=== PATIENT | female | born 1940 | race Caucasian/White ===

== ENCOUNTER 2019-06-27 14:17 | Outpatient (RCR) | payer MEDICARE, SELFPAY | END 2019-12-31 23:59 | disposition home or self-care (01) | LOC: OPREHAB 14:17 | PROVIDERS: PCP Internal Medicine; Visit Provider Internal Medicine | DX: R42 Dizziness and giddiness (principal) | CPT/HCPCS: 97161 ==

== ENCOUNTER 2019-10-30 00:40 | Day surgery (SDC) | payer MEDICARE, SELFPAY ==
[2019-10-23 14:47] VITALS: BMI 37.3
[2019-10-30] MEDS: LACTATED RINGERS 1,000 ML 150 ML IV CONT ×2 (06:45→07:40)
[2019-10-30 06:58] VITALS: BP 149/65; PULSE 70; RESP 20; TEMP 36.6; O2SAT 96
--- NOTE | 2019-10-30 07:21 | WPDANESEPPF ---
Anes - Initial Pre Proc Eval Procedure: Operation Date: 10/30/19 07:30 Proposed Procedures p Screening Colonoscopy - Momo Sanz MD Date/Time: 10/30/19 07:21 Surgeon: Momo Sanz MD Pre Op Diagnosis: hx colon polyp Patient Data Age: 78 Gender: F Height: 5 ft 6 in Weight: 108.3 kg Last Vital Signs Temp 97.9 F 10/30/19 06:58 Pulse 70 10/30/19 06:58 Resp 20 10/30/19 06:58 BP 149/65 H 10/30/19 06:58 Pulse Ox 96 10/30/19 06:58 Allergies Allergy/AdvReac Type Severity Reaction Status Date / Time acetaminophen [From Vicodin] Allergy Nausea Verified 10/30/19 07:02 adenosine Allergy Weakness Verified 10/30/19 07:02 bupivacaine [From Marcaine] Allergy Hives Verified 10/30/19 07:02 celecoxib [From Celebrex] Allergy GI ISSUE Verified 10/30/19 07:02 diclofenac [From Arthrotec] Allergy GI ISSUE Verified 10/30/19 07:02 hydrochlorothiazide Allergy RENAL Verified 10/30/19 07:02 FAILURE hydrocodone [From Vicodin] Allergy Nausea Verified 10/30/19 07:02 levofloxacin [From Levaquin] Allergy THROAT Verified 10/30/19 07:02 CLOSING lidocaine Allergy Hives Verified 10/30/19 07:02 metoprolol [From Toprol XL] Allergy Cough Verified 10/30/19 07:02 metronidazole [From Flagyl] Allergy Nausea Verified 10/30/19 07:02 misoprostol [From Arthrotec] Allergy GI ISSUE Verified 10/30/19 07:02 prednisone Allergy Hives Verified 10/30/19 07:02 prochlorperazine Allergy Confusion Verified 10/30/19 07:02 [From Compazine] quinapril [From Accupril] Allergy Cramping Verified 10/30/19 07:02 of the Muscles rofecoxib [From Vioxx] Allergy Gastrointestinal Verified 10/30/19 07:02 Upset sertraline [From Zoloft] Allergy Gastrointestinal Verified 10/30/19 07:02 Upset spironolactone Allergy Diarrhea Verified 10/30/19 07:02 sulfanilamide Allergy Verified 10/30/19 07:02 Home Medications Medication Instructions Recorded Confirmed Type amlodipine 5 mg PO DAILY 10/23/19 10/23/19 History aspirin [Aspirin Low Dose] 81 mg PO DAILY 10/23/19 10/23/19 History atorvastatin 10 mg PO DAILY 10/23/19 10/30/19 History calcium polycarbophil [FiberCon] 625 mg PO DAILY 10/23/19 10/23/19 History coenzyme Q10 [CoQ-10] 30 mg PO DAILY 10/23/19 10/23/19 History colesevelam [WelChol] 625 mg PO DAILY 10/23/19 10/23/19 History escitalopram oxalate 10 mg PO DAILY 10/23/19 10/23/19 History esomeprazole magnesium [Nexium] 40 mg PO DAILY 10/23/19 10/23/19 History furosemide 40 mg PO DAILY 10/23/19 10/23/19 History levothyroxine 100 mcg PO DAILY 10/23/19 10/23/19 History potassium chloride 10 meq PO DAILY 10/23/19 10/23/19 History telmisartan [Micardis] 20 mg PO DAILY 10/23/19 10/30/19 History verapamil 180 mg PO DAILY 10/23/19 10/30/19 History esomeprazole magnesium [Nexium] 40 mg PO DAILY 10/30/19 10/30/19 History lorazepam 0.5 mg PO DAILY 10/30/19 10/30/19 History Patient hx anesthesia problems: none Family hx anesthesia problems: none [facility] Past Medical History Medical History (Updated 10/30/19 @ 07:21 by Prosper Gillis MD) COPD (chronic obstructive pulmonary disease) GERD (gastroesophageal reflux disease) Hypertension Hypothyroid Family History Family History (Updated 03/25/16 @ 23:19 by DOCTOR UNKNOWN) Father Family history of lymphoma Hypertension Mother Hypertension Family history of coronary artery disease Sibling Family history of malignant neoplasm of breast in first degree relative Other Family history of heart disease in male family member before age 55 Family history of malignant neoplasm of male breast Social History Social History Smoking status: Former smoker Smoking end date: 08/28/76 Alcohol intake: never Anes - Eval Final PreProcedure Day of Procedure 10/30/19 07:21 Patient weight: obese Heart: regular rate and rhythm Lungs: clear to auscultation Airway: Mallampati scale class III Neurological: alert and oriented Last oral intake: >/= 8 hours
--- NOTE | 2019-10-30 07:41 | WPDGICN ---
Assessment and Plan Additional Plan This is a 78-year-old white female patient seen in evaluation at the request of Dr Amado Choe. patient has a history of colon polyps. She presents today for follow-up colonoscopy. Her current weight appetite bowel movements are normal. She denies abdominal pain. She denies blood in her stools. Past medical history is significant for COPD, hypertension, elevated cholesterol, hypothyroidism, current medications include amlodipine, FiberCon, Lasix, atorvastatin, levothyroxine, lorazepam Marlene, Micardis, Nexium, potassium, verapamil, Welchol, she has allergies to Arthrotec, Celebrex, Compazine, Flagyl, hydrochlorothiazide, Levaquin, spironolactone, Vicodin, Zoloft, sulfa medicines, Accupril, family history noncontributory. Physical exam reveals her to be alert. Oriented x3. She is anicteric. Lungs are clear to auscultation and percussion. Heart is without murmur or extra sounds. Abdominal exam bowel sounds are present soft nontender with no organomegaly. Digital external rectal exam is normal. Impression 1. Personal history of colon polyps. Plan is for surveillance colonoscopy now and consider at 5 years intervals if she remains healthy. GI Consult Note Consult date/time: 10/30/19 07:41 HPI: Jennie Walker is a 78 year old female [facility] Past Medical History Medical History (Updated 10/30/19 @ 07:21 by Prosper Gillis MD) COPD (chronic obstructive pulmonary disease) GERD (gastroesophageal reflux disease) Hypertension Hypothyroid Family History Family History (Updated 03/25/16 @ 23:19 by DOCTOR UNKNOWN) Father Family history of lymphoma Hypertension Mother Hypertension Family history of coronary artery disease Sibling Family history of malignant neoplasm of breast in first degree relative Other Family history of heart disease in male family member before age 55 Family history of malignant neoplasm of male breast Social History Social History Smoking status: Former smoker Smoking end date: 08/28/76 Alcohol intake: never Meds Home Medications and Allergies Home Medications Medication Instructions Recorded Confirmed Type amlodipine 5 mg PO DAILY 10/23/19 10/23/19 History aspirin [Aspirin Low Dose] 81 mg PO DAILY 10/23/19 10/23/19 History atorvastatin 10 mg PO DAILY 10/23/19 10/30/19 History calcium polycarbophil [FiberCon] 625 mg PO DAILY 10/23/19 10/23/19 History coenzyme Q10 [CoQ-10] 30 mg PO DAILY 10/23/19 10/23/19 History colesevelam [WelChol] 625 mg PO DAILY 10/23/19 10/23/19 History escitalopram oxalate 10 mg PO DAILY 10/23/19 10/23/19 History esomeprazole magnesium [Nexium] 40 mg PO DAILY 10/23/19 10/23/19 History furosemide 40 mg PO DAILY 10/23/19 10/23/19 History levothyroxine 100 mcg PO DAILY 10/23/19 10/23/19 History potassium chloride 10 meq PO DAILY 10/23/19 10/23/19 History telmisartan [Micardis] 20 mg PO DAILY 10/23/19 10/30/19 History verapamil 180 mg PO DAILY 10/23/19 10/30/19 History esomeprazole magnesium [Nexium] 40 mg PO DAILY 10/30/19 10/30/19 History lorazepam 0.5 mg PO DAILY 10/30/19 10/30/19 History Allergies Allergy/AdvReac Type Severity Reaction Status Date / Time acetaminophen [From Vicodin] Allergy Nausea Verified 10/30/19 07:02 adenosine Allergy Weakness Verified 10/30/19 07:02 bupivacaine [From Marcaine] Allergy Hives Verified 10/30/19 07:02 celecoxib [From Celebrex] Allergy GI ISSUE Verified 10/30/19 07:02 diclofenac [From Arthrotec] Allergy GI ISSUE Verified 10/30/19 07:02 hydrochlorothiazide Allergy RENAL Verified 10/30/19 07:02 FAILURE hydrocodone [From Vicodin] Allergy Nausea Verified 10/30/19 07:02 levofloxacin [From Levaquin] Allergy THROAT Verified 10/30/19 07:02 CLOSING lidocaine Allergy Hives Verified 10/30/19 07:02 metoprolol [From Toprol XL] Allergy Cough Verified 10/30/19 07:02 metronidazole [From Flagyl] Allergy Nausea Verified 10/30/19 07:02 misoprostol [From Arthrot
[2019-10-30 07:57] VITALS: BP 125/53; PULSE 63; RESP 17; O2SAT 95
[2019-10-30 08:07] VITALS: BP 122/60; PULSE 65; RESP 16; O2SAT 95
[2019-10-30 08:17] VITALS: BP 134/58; PULSE 71; RESP 19; O2SAT 98
== END 2019-10-30 08:55 | disposition home or self-care (01) ==
PROVIDERS: Visit Provider Internal Medicine Gastroenterology
PROC: 0DJD8ZZ Inspection of Lower Intestinal Tract, Via Natural or Artificial Opening Endoscopic (ICD-10-PCS; CPT 45378; principal; 2019-10-30 07:30)
DX: Z12.11 Encounter for screening for malignant neoplasm of colon (principal); D12.2 Benign neoplasm of ascending colon; K64.8 Other hemorrhoids; I10 Essential (primary) hypertension; E78.00 Pure hypercholesterolemia, unspecified; J44.9 Chronic obstructive pulmonary disease, unspecified; E03.9 Hypothyroidism, unspecified; K21.9 Gastro-esophageal reflux disease without esophagitis; Z87.891 Personal history of nicotine dependence; Z79.82 Long term (current) use of aspirin; E66.9 Obesity, unspecified; Z68.38 Body mass index [BMI] 38.0-38.9, adult
CPT/HCPCS: 45385; 88305; J2704; J7120

== ENCOUNTER → 2022-05-16 12:26 | Outpatient (CLI) | payer MEDICARE, SELFPAY ==
--- NOTE | ~2022-05-16 | CT_ITS ---
EXAMINATION: CT abdomen pelvis w con DATE: 05/16/2022 13:12 INDICATION: Generalized abdominal pain. Status post cholecystectomy, hysterectomy, appendectomy and c olon resection. TECHNIQUE: Computed tomography (CT) of the abdomen and pelvis was performed with 100 CC Omnipaque 350 intravenous contrast. Automated exposure control and iterative reconstruction technique were employe d. Exam dose: 1027.83 mGy-cm total exam DLP. COMPARISON: 08/06/2015 CTA abdomen FINDINGS: Again noted are numerous small groundglass nodular densities in the lower lung zones; many were present on 08/06/2015. These are likely chronic benign post infectious or inflammatory residua. No infiltrate or consolidation at the lung bases. No pericardial or pleural effusion. Stable hepatic lesions including posterior right hepatic hemangioma. Stable small cyst or hemangioma of the medial segment left hepatic lobe. 4 mm posterior right hepatic cyst. Status post cholecystectomy. No bile duct dilatation. Normal splenic size. No pancreatic mass lesion or calcification or ductal dilatation. Normal morphology of the adrenal glands. No renal mass lesion or urinary tract calculus or hydroureteronephrosis. The urinary bladder is relat ively evacuated but otherwise unremarkable. Status post hysterectomy. There is extensive calcification of the abdominal aorta but no aneurysm. Calcification of iliac and f emoral arteries without aneurysm. No intraperitoneal or retroperitoneal or pelvic mass lesion or autumn opathy or ascites is noted. Very small sliding hiatal hernia. No bowel obstruction, bowel wall thickening, pneumatosis or intrape ritoneal free air. Degenerative spurring of the thoracic spine. Multilevel degenerative disc disease of the lumbar spine . Degenerative change at the lumbar apophyseal joints with associated grade 1 anterolisthesis at L3-4 and L4-5. Bilateral hip osteoarthritis, right worse than left. No suspicious osteolytic or osteoblastic lesions are noted. IMPRESSION: Hepatic hemangioma(s) and cyst(s) Status post cholecystectomy Status post hysterectomy Very small sliding hiatal hernia Chronic small groundglass nodular pulmonary opacities Reviewed, dictated and finalized at [facility]. Reviewed, dictated and finalized at location [facility].
[2022-05-17 14:25] LABS: Estimated Glomerular Filt Rate > 60
== END ==
DX: R10.84 Generalized abdominal pain (principal); D18.09 Hemangioma of other sites; K76.89 Other specified diseases of liver; Z90.49 Acquired absence of other specified parts of digestive tract; Z90.710 Acquired absence of both cervix and uterus; K44.9 Diaphragmatic hernia without obstruction or gangrene; R91.8 Other nonspecific abnormal finding of lung field
CPT/HCPCS: 74177; Q9967

== ENCOUNTER → 2022-07-14 16:19 | Outpatient (CLI) | payer MEDICARE, SELFPAY ==
--- NOTE | ~2022-07-14 | XR_ITS ---
EXAMINATION: XR knee LT 2V DATE: 07/14/2022 16:45 INDICATION: Left knee pain TECHNIQUE: Two views of the left knee were obtained. COMPARISON: None. FINDINGS: Alignment is normal. No fracture or osteochondral lesion. There is tricompartmental osteoar thritis of the knee, severe in the medial compartment and moderate in the lateral patellofemoral comp artments. No joint effusion/synovitis. Soft tissues are unremarkable. IMPRESSION: 1. Tricompartmental osteoarthritis, severe in the medial compartment. Reviewed, dictated and finalized at location F. [employer]
== END ==
DX: M25.562 Pain in left knee (principal); M17.12 Unilateral primary osteoarthritis, left knee
CPT/HCPCS: 73560

== ENCOUNTER → 2022-07-25 13:51 | Outpatient (CLI) | payer MEDICARE, SELFPAY ==
--- NOTE | ~2022-07-25 | US_ITS ---
US soft tissue LE LT 07/25/2022 14:15 Indication: Left knee pain Procedure: High-resolution ultrasound of the left knee posteriorly in the area of pain and swelling Comparison: No prior studies for comparison. Findings: There is a complicated cystic structure posterior to the left knee in the area of pain tano uring 4.7 x 1.3 x 1.7 cm, likely a Bakers cyst. No other discrete solid or cystic masses are seen. 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 Reviewed, dictated and finalized at location A. [employer] Impression: 1: Complicated localized fluid posterior to the left knee, likely a Roth's cys t measuring 4.7 x 1.3 x 1.7 cm.
== END ==
DX: M25.562 Pain in left knee (principal); M15.0 Primary generalized (osteo)arthritis; R93.6 Abnormal findings on diagnostic imaging of limbs
CPT/HCPCS: 76882

== ENCOUNTER 2024-06-06 07:32 | Day surgery (SDC) | payer MEDICARE, SELFPAY ==
[2024-05-10 10:48] VITALS: BMI 36.5
[2024-05-22 10:32] VITALS: BMI 36.3
--- NOTE | 2024-06-06 07:08 | WPDANESEPPF ---
Anes - Initial Pre Proc Eval Procedure: Operation Date: 06/06/24 11:30 Proposed Procedures p Diagnostic Colonoscopy - Momo Sanz MD Date/Time: 06/06/24 07:08 Surgeon: Momo Sanz MD Pre Op Diagnosis: Chg.in Bowel Habit.Constipation,unspec.Personal HX Patient Data Age: 83 Gender: F Height: 1.6 m Weight: 93 kg Allergies Allergy/AdvReac Type Severity Reaction Status Date / Time levofloxacin [From Levaquin] Allergy Severe THROAT Verified 06/06/24 10:47 CLOSING bupivacaine [From Marcaine] Allergy Hives Verified 06/06/24 10:47 diclofenac [From Arthrotec] Allergy Unknown Verified 06/06/24 10:47 diltiazem [From Cardizem] Allergy Swelling Verified 06/06/24 10:47 hydrochlorothiazide Allergy RENAL Verified 06/06/24 10:47 FAILURE lidocaine Allergy Hives Verified 06/06/24 10:47 prednisone Allergy Hives Verified 06/06/24 10:47 sulfanilamide Allergy Unknown Verified 06/06/24 10:47 adenosine AdvReac Weakness Verified 06/06/24 10:47 celecoxib [From Celebrex] AdvReac GI ISSUE Verified 06/06/24 10:47 enalaprilat [From Vasotec] AdvReac Cough Verified 06/06/24 10:47 hydrocodone [From Vicodin] AdvReac Nausea Verified 06/06/24 10:47 metoprolol [From Toprol XL] AdvReac Cough Verified 06/06/24 10:47 metronidazole [From Flagyl] AdvReac Nausea Verified 06/06/24 10:47 misoprostol [From Arthrotec] AdvReac GI ISSUE Verified 06/06/24 10:47 prochlorperazine AdvReac Confusion Verified 06/06/24 10:47 [From Compazine] quinapril [From Accupril] AdvReac Cough Verified 06/06/24 10:47 rofecoxib [From Vioxx] AdvReac Gastrointestinal Verified 06/06/24 10:47 Upset sertraline [From Zoloft] AdvReac Hallucinati Verified 06/06/24 10:47 ng spironolactone AdvReac Diarrhea Verified 06/06/24 10:47 Home Medications Medication Instructions Recorded Confirmed Type aspirin 81 mg tablet,delayed 81 mg PO DAILY 10/23/19 06/06/24 History release (Teodora Low Dose Aspirin) atorvastatin 10 mg PO DAILY 10/23/19 06/06/24 History calcium polycarbophil 625 mg 625 mg PO BID 10/23/19 06/06/24 History tablet (FiberCon) coenzyme Q10 30 mg capsule (CoQ-10) 30 mg PO DAILY 10/23/19 06/06/24 History furosemide 40 mg tablet 40 mg PO DAILY 10/23/19 06/06/24 History levothyroxine 100 mcg tablet 100 mcg PO DAILY 10/23/19 06/06/24 History potassium chloride 10 mEq 10 meq PO DAILY 10/23/19 06/06/24 History tablet,extended release telmisartan 20 mg tablet (Micardis) 20 mg PO DAILY 10/23/19 06/06/24 History verapamil 180 mg 24 hr 180 mg PO BID 10/23/19 06/06/24 History capsule,extended release esomeprazole magnesium 40 mg 40 mg PO DAILY 10/30/19 06/06/24 History capsule,delayed release (Nexium) lorazepam 0.5 mg tablet 0.5 mg PO DAILY PRN Anxiety 10/30/19 06/06/24 History ascorbic acid (vitamin C) 100 mg 100 mg PO DAILY 05/22/24 06/06/24 History chewable tablet cholecalciferol (vitamin D3) 10 10 mcg PO DAILY 05/22/24 06/06/24 History mcg (400 unit) capsule (Vitamin D3) folic acid 400 mcg tablet 0.4 mg PO DAILY 05/22/24 06/06/24 History krill oil 1,000 mg-om3 130 mg-dha 1 cap PO DAILY 05/22/24 06/06/24 History 40 mg-epa 80 oa-ek0-msh-astax cap (Krill Oil ([place] 3 and 6)) vitamin B complex 1 tablet PO DAILY 05/22/24 06/06/24 History vitamins A,C,S-tnhx-lkxwhy 2,148 2 tablet PO BID 05/22/24 06/06/24 History mcg-113 mg-45 mg-17.4 mg tablet (PreserVision AREDS) Patient hx anesthesia problems: none Family hx anesthesia problems: none Results Review: All pre-operative results and documents have been reviewed as part of the pre-operative evaluation. PMFSH Past Medical History Medical History (Updated 06/06/24 @ 11:27 by Delano Ayala DO) COPD (chronic obstructive pulmonary disease) denies GERD (gastroesophageal reflux disease) Hypertension Hypothyroid ESSIE (obstructive sleep apnea) Surgical History Surgical History (Updated 06/05/24 @ 12:10 by Delano Ayala DO) History
[2024-06-06 10:54] VITALS: BP 174/72; PULSE 65; RESP 18; TEMP 36.3; O2SAT 99; BMI 36.1
[2024-06-06] MEDS: LACTATED RINGERS 1,000 ML 150 ML IV CONT (11:13)
--- NOTE | 2024-06-06 11:26 | PM.HPGS ---
History of Present Illness History of Present Illness Consent: Risks, benefits, and alternatives have been discussed and questions answered. Patient agrees to proceed with procedure. Chief complaint: Chg.in Bowel Habit.Constipation,hx of colon cancer Narrative: Jennie Walker is a 83 year old female presents for colonoscopy. Patient recently has had a change in bowel habits with tendency towards constipation. She denies abdominal pain or bleeding. Her past medical history is significant for colon cancer resected in 1994. It has been for 5 years since last colonoscopy. Patient returns today for screening exam. Family history is noncontributory. Review of Systems Review of Systems: All systems reviewed & are unremarkable except as noted in HPI and below PMFSH Past Medical History Medical History (Updated 06/06/24 @ 11:27 by Delano Ayala DO) COPD (chronic obstructive pulmonary disease) denies GERD (gastroesophageal reflux disease) Hypertension Hypothyroid ESSIE (obstructive sleep apnea) Surgical History Surgical History (Updated 06/05/24 @ 12:10 by Delano Ayala DO) History of hysterectomy Family History Family History Father Family history of lymphoma Hypertension Mother Hypertension Family history of coronary artery disease Sibling Family history of malignant neoplasm of breast in first degree relative Other Family history of heart disease in male family member before age 55 Family history of malignant neoplasm of male breast Social History Social History Smoking packs per day: 0.25 Smoking cigarettes per day: 5.0 Years smoked: 10 Smoking pack-years: 2.50 Smoking status: Former smoker Tobacco type: cigarettes Smoking end date: 08/28/76 Alcohol intake: never Substance use: never Substance use type: does not use Living arrangements: with family Spiritual care concerns: No Meds Home Medications and Allergies Home Medications Medication Instructions Recorded Confirmed Type aspirin 81 mg tablet,delayed 81 mg PO DAILY 10/23/19 06/06/24 History release (Teodora Low Dose Aspirin) atorvastatin 10 mg PO DAILY 10/23/19 06/06/24 History calcium polycarbophil 625 mg 625 mg PO BID 10/23/19 06/06/24 History tablet (FiberCon) coenzyme Q10 30 mg capsule (CoQ-10) 30 mg PO DAILY 10/23/19 06/06/24 History furosemide 40 mg tablet 40 mg PO DAILY 10/23/19 06/06/24 History levothyroxine 100 mcg tablet 100 mcg PO DAILY 10/23/19 06/06/24 History potassium chloride 10 mEq 10 meq PO DAILY 10/23/19 06/06/24 History tablet,extended release telmisartan 20 mg tablet (Micardis) 20 mg PO DAILY 10/23/19 06/06/24 History verapamil 180 mg 24 hr 180 mg PO BID 10/23/19 06/06/24 History capsule,extended release esomeprazole magnesium 40 mg 40 mg PO DAILY 10/30/19 06/06/24 History capsule,delayed release (Nexium) lorazepam 0.5 mg tablet 0.5 mg PO DAILY PRN Anxiety 10/30/19 06/06/24 History ascorbic acid (vitamin C) 100 mg 100 mg PO DAILY 05/22/24 06/06/24 History chewable tablet cholecalciferol (vitamin D3) 10 10 mcg PO DAILY 05/22/24 06/06/24 History mcg (400 unit) capsule (Vitamin D3) folic acid 400 mcg tablet 0.4 mg PO DAILY 05/22/24 06/06/24 History krill oil 1,000 mg-om3 130 mg-dha 1 cap PO DAILY 05/22/24 06/06/24 History 40 mg-epa 80 ch-fa7-nzm-astax cap (Krill Oil ([place] 3 and 6)) vitamin B complex 1 tablet PO DAILY 05/22/24 06/06/24 History vitamins A,C,V-glvw-pgcokn 2,148 2 tablet PO BID 05/22/24 06/06/24 History mcg-113 mg-45 mg-17.4 mg tablet (PreserVision AREDS) Allergies Allergy/AdvReac Type Severity Reaction Status Date / Time levofloxacin [From Levaquin] Allergy Severe THROAT Verified 06/06/24 10:47 CLOSING bupivacaine [From Marcaine] Allergy Hives Verified 06/06/24 10:47 diclofenac [From Arthrotec] Allergy
[2024-06-06 13:27] VITALS: BP 124/53; PULSE 57; RESP 18; O2SAT 99
--- NOTE | 2024-06-06 13:34 | WPDANESPN ---
Anes - Prog Note Post-Op Date/Time: 06/06/24 13:34 Cardiovascular status: normal Respiratory status: normal Airway patency: baseline Mental status: baseline Post-Op hydration status: normal Vital Signs: Last Vital Signs Temp 36.3 C L 06/06/24 10:54 Pulse 57 L 06/06/24 13:27 Resp 18 06/06/24 13:27 BP 124/53 L 06/06/24 13:27 Pulse Ox 99 06/06/24 13:27 O2 Del Method Room Air 06/06/24 13:27 Pain Score (VAS): 0 I/O: Intake & Output 06/05/24 06/06/24 06/06/24 23:59 07:59 15:59 Intake Total 900 Balance 900 Post-procedural complaints: none Patient Feedback: Patient satisfied with anesthetic care. Other Findings: Patient vital signs back to baseline. Patient denies nausea and vomiting. Patient's pain under control. Patient OK for discharge.
[2024-06-06 13:37] VITALS: BP 138/57; PULSE 67; RESP 20; O2SAT 98
[2024-06-06 13:47] VITALS: BP 149/80; PULSE 60; RESP 20; O2SAT 99
== END 2024-06-06 14:01 | disposition home or self-care (01) ==
PROVIDERS: Visit Provider Internal Medicine Gastroenterology
PROC: 0DJD8ZZ Inspection of Lower Intestinal Tract, Via Natural or Artificial Opening Endoscopic (ICD-10-PCS; CPT 45378; principal; 2024-06-06 11:30)
DX: Z85.038 Personal history of other malignant neoplasm of large intestine (principal); D12.2 Benign neoplasm of ascending colon; K64.8 Other hemorrhoids
CPT/HCPCS: 45385

== ENCOUNTER 2024-06-06 08:51 | Outpatient (NON) | payer MEDICARE, SELFPAY | END 2024-06-06 08:52 | disposition home or self-care (01) | LOC: ANHLAB 06-07 08:53 | PROVIDERS: Visit Provider Internal Medicine Gastroenterology | DX: D12.2 Benign neoplasm of ascending colon (principal); Z85.038 Personal history of other malignant neoplasm of large intestine | CPT/HCPCS: 88305 ==